=== PATIENT | female | born 1960 | race Two or more races ===

== ENCOUNTER 2025-03-26 11:13 | Emergency (ER) | payer OTHER ==
[~2025-03-26] VITALS: Ht 167.6 cm; Wt 61.2 kg
[2025-03-26] MEDS ORDERED: IPRATROPIUM BROMIDE 0.5 MG/2.5 ML AMPUL.NEB IH ONE ×3 (15:29→19:36)
[2025-03-26] MEDS ORDERED: LEVALBUTEROL HCL 0.63 MG/3 ML SOLUTION IH ONE ×2 (15:29→15:53)
[2025-03-26] MEDS ORDERED: IPRATROPIUM BROMIDE 0.5 MG/2.5 ML AMPUL.NEB IH SCH (15:30)
[2025-03-26] MEDS ORDERED: LEVALBUTEROL HCL 1.25 MG/3 ML SOLUTION IH SCH (15:30)
[2025-03-26] MEDS ORDERED: GUAIFENESIN/DEXTROMETHORPHAN 100MG/10ML BLIST.PACK PO ONE (15:30)
[2025-03-26] MEDS ORDERED: FAMOTIDINE/PF 20 MG/2 ML VIAL IV ONE (15:30)
[2025-03-26] MEDS ORDERED: METHYLPREDNISOLONE SOD SUCC 125 MG VIAL IV ONE (15:30)
[2025-03-26] MEDS ORDERED: GUAIFEN/DEXTROMETHORPHAN/PE 10 ML BLIST.PACK PO ONE (15:48)
[2025-03-26] MEDS ORDERED: FAMOTIDINE/PF 20 MG/2 ML VIAL ONE (15:49)
[2025-03-26 16:17] LABS: BASO % 0.1 % (0.1-1.2); EOS # 0.00 (0.04-0.54); EOS % 0.0 % (0.7-7.0); LYMPH # 2.06 (1.18-3.74); LYMPH % 16.0 % (19.3-53.1); MEAN PLATELET VOLUME 8.90 fl (9.4-12.4); MONO # 0.82 (0.24-0.82); MONO % 6.4 % (4.7-12.5); NEUT # 9.89 (1.56-6.13); NEUT % 77.0 % (34.0-71.1); RED CELL DISTRIBUTION WIDTH 13.2 % (11.6-14.4)
[2025-03-26 16:54] LABS: ALT/SGPT 30.0 U/L (12-78); AST/SGOT 11.0 U/L (15-37); BILIRUBIN TOTAL 0.32 mg/dL (0.3-1.2); BUN CREA RATIO 20.0 (7.0-25.0); CREATININE SERUM 0.94 mg/dL (0.55-1.02); GFR 59.58; GLOBULINA 3.7 G/DL (2.4-3.5); GLUCOSE FASTING 122.0 mg/dL (65-100); OSMOLALITY SERUM 287.0 MOSM/KG (275-295)
[2025-03-26 17:11] LABS: COVID-19 AG NEGATIVE (NEGATIVE)
[2025-03-26] MEDS ORDERED: LEVALBUTEROL HCL 1.25 MG/3 ML SOLUTION IH ONE ×2 (19:15→19:36)
[2025-03-26] MEDS ORDERED: BENZONATATE 100 MG CAPSULE PO ONE (19:15)
[2025-03-26] MEDS ORDERED: XOPENEX CO1.25 MG/0. IH (19:59)
[2025-03-26] MEDS ORDERED: IPRATROPIU0.2 MG/1 M IH (19:59)
[2025-03-26] MEDS ORDERED: SINGULAIR10 MG PO (19:59)
[2025-03-26] MEDS ORDERED: BENZONATATE200 M1 PO (19:59)
[2025-03-26] MEDS ORDERED: ZITHROMAX500 MG PO (19:59)
== END 2025-03-26 20:55 ==
LOC: ER 11:14
PROVIDERS: General Practice
DX: R06.02 Shortness of breath (principal); R05.8 Other specified cough; J06.9 Acute upper respiratory infection, unspecified; R05.9 Cough, unspecified; R51.9 Headache, unspecified; Z20.822 Contact with and (suspected) exposure to COVID-19
CPT/HCPCS: 36415; 71046; 94640; 96365; 99283; J3490 ×2